=== PATIENT | male | born 1950 | race Caucasian/White ===

== ENCOUNTER 2019-03-09 11:53 | Observation (INO) ==
[2019-03-09] MEDS ORDERED: 0.9 % Sodium Chloride 1,000 ML IVC ONE (12:08)
[2019-03-09] MEDS ORDERED: Ondansetron 4 MG/2 ML VIAL IVP STA (12:08)
--- NOTE | 2019-03-09 12:08 | Emergency Department Note ---
Disposition Clinical Impression: Pneumonia Qualifiers: Pneumonia type: due to unspecified organism Laterality: bilateral Lung location: lower lobe of lung Qualified Code(s): J18.1 - Lobar pneumonia, unspecified organism Disposition: Admitted As Inpatient Condition: Good Instructions: Community-acquired Pneumonia (ED) Prescriptions: Doxycycline 100 mg PO BID #20 capsule Nicotine Patch [Nicoderm] 14 mg TD DAILY #10 patch.td24 Ondansetron ODT [Zofran ODT] 4 mg SL Q8HR #20 tab.rapdis Referrals: Baryon Ingram MD [Primary Care Provider] - 03/10/19 (pneumonia re-evaluation) Forms: ED Satisfaction Letter Time of Disposition: 15:56 Nausea/Vomiting/Diarrhea HPI - General Chief complaint: ED Nausea/Vomiting/Diarrhea Stated complaint: vomiting,weakness Time Seen by Provider: 03/09/19 12:01 Source: patient, family Mode of arrival: ambulatory Limitations: no limitations Nursing Notes Reviewed: Yes Vital Signs Reviewed: Yes - History of Present Illness HPI Narrative: 68-year-old male past medical history of recurrent sinusitis, BPH, high blood pressure presenting for 3 days of gradually progressive and worsening headache, lightheadedness, dizziness, fevers chills nausea vomiting. Patient was seen his primary care physician on Sunday morning diagnosed with upper rest for in fections at home on antibiotics. Family bedside states the patient was unable to take the antibiotics as he developed nausea and vomiting later in the day and has been able unable to keep any by mouth intake down since that point. Patient states that his headache is continued getting worse as well as lightheadedness and dizziness and is he is encountered falls due to this. Patient denies any tr auma during his falls but states that he has also developed worsening nausea and vomiting since this time. Pt Subjective Complaint: nausea, vomiting, abdominal pain Onset (ago): day(s) Associated Abdominal Pain: Yes If pain, Location of pain: diffuse Severity: severe Severity scale (1-10): 8 Consistency: Worsening Associated symptoms: Reports: fever/chills, malaise, nausea/vomiting - Related Data Previous Rx's Medication Instructions Recorded Doxycycline 100 mg PO BID #20 capsule 03/09/19 Nicotine Patch [Nicoderm] 14 mg TD DAILY #10 patch.td24 03/09/19 Ondansetron ODT [Zofran ODT] 4 mg SL Q8HR #20 tab.rapdis 03/09/19 Allergies Allergy/AdvReac Type Severity Reaction Status Date / Time No Known Allergies Allergy Verified 09/03/18 10:15 Review of Systems: *See History of Present Illness for more detail Constitutional: Admits fever, chills HEENT: Denies dysphagia/odynophagia, lymphadenopathy Cardiovascular: Denies: chest pain Respiratory: Denies: dyspnea, cough, hemoptysis Gastrointestinal: Admits abdominal pain, nausea vomiting Denies:diarrhea, constipation, hematemesis, melena, hematochezia Genitourinary: Denies: hematuria Musculoskeletal: Denies: back pain, neck pain Integumentary: Denies: rash Neurological: Admits headache, weakness, lightheadedness and dizziness difficulty with ambulation Denies: numbness, paresthesias. Endocrine: Admits fatigue All systems ED: reviewed and negative except as stated. Review of Systems: As Per HPI Past Medical History - Past Medical History Medical history: Reports: hyperlipidemia, hypertension, other - Social History Smoking Status: Current every day smoker Smokeless Tobacco Status: No Alcohol use: Reports: none Drug use: Reports: none Physical Exam Constitutional: No acute distress, [id number], engaged to conversation, speech is fluid, answers questions appropriately Neuro: GCS 15, no overt focal neurological deficits Head: Atraumatic, normocephalic Eyes: Pupils equal, round and reactive to light, no scleral icterus, no conjunctival injection Neck: Trachea midline without deviation. Anterior neck is supple without swelling. *Chest: Symmetric chest wall rise *Heart: Cardiac rhythm and rate are regular with S1 and S2 , no S3 or S4 appreciated, no murmurs, gallops, rubs, or clicks. *Lungs: Lungs are clear to auscultation bilaterally, without accessory muscle use or prolonged expiratory phase. No wheezes, rhonchi or stridor appreciated. Abdomen: Abdomen is diffusely tender to palpation. Abdomen is otherwise flat, soft to palpation, normal bowel sounds. No abdominal bruit auscultated. Non- distended, non-rigid, no organomegaly, no ascites appreciated. No pulsatile mass, no guarding to palpation in all four quadrants, no rebound Extremities: Normal capillary refill without evidence of pedal edema, joint swelling or erythema. Pulses/motor/sensory intact in all 4 extremities. Psychiatric exam: Patient displays a normal affect and mood for the environment. No overt signs of hallucination. Integumentary: warm, dry, intact, normal color. No rash, cyanosis, diaphoresis, erythema, or pallor - General Limitations: no limitations General appearance: alert, in no apparent distress Course Course Narrative: Differential diagnosis includes but is not limited to: Intracranial pathology, Myocardial ischemia/arrhythmia Intra-abdominal pathology Evaluations: CBC, BMP, hepatic panel, lipase, ammonia, CT scan of the abdomen and pelvis, CT scan of the head, EKG/old EKG, chest x-ray, urinalysis Treatments: Fentanyl and Zofran, IV fluids for the management of patient's symptoms - Reevaluation(s) Reevaluation #1: Concern for pneumonia patient given 500 mg azithromycin once in ED. Vital Signs Temperature 97.4 F L 03/09/19 11:58 Pulse Rate 64 03/09/19 11:58 Respiratory Rate 18 03/09/19 11:58 Blood Pressure 149/94 03/09/19 11:58 O2 Sat by Pulse Oximetry 97 03/09/19 11:58 Temperature 97.4 F L 03/09/19 11:58 Pulse Rate 58 03/09/19 15:48 Respiratory Rate 17 03/09/19 15:48 Blood Pressure 152/91 03/09/19 15:48 O2 Sat by Pulse Oximetry 96 03/09/19 15:48 Oxygen Delivery Oxygen Delivery Room Air Nausea/Vomiting/Diarrhea - [facility] Narrative Medical decision making narrative: Patient imaging results significant for tree in bilateral opacities consistent with small airway disease. EKG, laboratory, imaging results are otherwise unremarkable. Patient was initially to be discharged home with ED return precautions and instructions to follow up with his primary care physician. During the discharge process patient developed severe substernal chest pain, which the patient initially believed to be heartburn. EKG was reperformed which shows no ischemic change. Despite GI cocktail here in the ED patient is continuing to have chest pain as well as weakness, lightheaded dizziness despite management with IV fluids, pain medication and antiemetics. Patient states that he does not feel safe returning home at this time given his condition and his inability to ambulate without assistance. Patient will be admitted to hospital medicine service for their evaluation and management with concern for ACS Patient and his family at the bedside verbalized their understanding and agreement with this plan. Patient's hemodynamics were stable time of admission Dr. Arora accepting admission. - Lab Data Lab results reviewed: Yes I reviewed the patient's lab results. Result diagrams: 03/09/19 12:22 03/09/19 12:22 Lab Results 03/09/19 03/09/19 03/09/19 Range/Units 12:22 12:22 12:22 WBC 10.3 (4.3-11.1) K/mcL RBC 5.39 (4.19-5.50) M/mcL Hgb 16.2 (12.9-16.9) g/dL Hct 46.6 (37.5-50.1) % MCV 86.5 (83.0-100.0) fL MCH 30.1 (28.0-33.3) pg MCHC 34.8 (31.6-35.5) g/dL RDW 13.1 (11.5-14.5) % Plt Count 168 (140-400) K/mcL MPV 10.5 (9.4-12.4) fL Immature Gran % 0.2 (0-4) % Seg Neutrophils % 65.2 % Lymphocytes % 27.6 % Monocytes % 5.2 % Eosinophils % 1.5 % Basophils % 0.3 % Neutrophils # 6.7 (1.6-8.9) K/mcL Lymphocytes # 2.8 (0.6-4.6) K/mcL Monocytes # 0.5 (0.0-1.3) K/mcL Eosinophils # 0.2 (0.0-0.6) K/mcL Basophils # 0.0 (0.0-0.2) K/mcL Sodium 140 (136-145) mEq/L Potassium 3.9 (3.5-5.1) mEq/L Chloride 104 (98-107) mEq/L Carbon Dioxide 23 (23-29) mEq/L BUN 19 (8-23) mg/dL Creatinine 0.86 (0.70-1.30) mg/dL Est GFR ( Amer) > 60 (> 60) Est GFR (Non-Af Amer) > 60 (> 60) BUN/Creatinine Ratio 22 (6-26) Glucose 115 H (70-105) mg/dL Calculated Osmolality 293 (280-300) Lactic Acid (0.5-2.2) mmol/L Calcium 9.7 (8.6-10.3) mg/dL Total Bilirubin 0.4 (0.3-1.0) mg/dL Direct Bilirubin 0.1 (0.0-0.2) mg/dL Indirect Bilirubin 0.3 (0.0-1.2) mg/dL AST 19 (13-39) Units/L ALT 30 (7-52) Units/L Alkaline Phosphatase 118 H (34-104) Units/L Ammonia 34 (16-53) mcmol/L Troponin I < 0.03 (< 0.04) ng/mL Serum Total Protein 7.6 (6.4-8.9) g/dL Albumin 4.3 (3.5-5.7) g/dL Globulin 3.3 (2.4-3.5) g/dL Albumin/Globulin Ratio 1.3 (1.1-2.2) Lipase 20 (11-82) Units/L Urine Color (Yellow) Urine Clarity (Clear) Urine pH (5.0-8.0) pH Units Ur Specific [place] (1.010-1.025) Urine Protein (Neg-Trace) mg/dL Urine Glucose (UA) (Normal) mg/dL Urine Ketones (Negative) mg/dL Urine Blood (Negative) Urine Nitrite (Negative) Urine Bilirubin (Negative) Urine Urobilinogen (Normal) mg/dL Ur Leukocyte Esterase (Negative) Urine Microscopic RBC (0-3) per hpf Urine Microscopic WBC (0-3) per hpf Ur Squamous Epith Cells (None-Few) per lpf Urine Bacteria (None-Few) per hpf Hyaline Casts (None-Few) per lpf Ur Culture Indicated? (NO) 03/09/19 03/09/19 Range/Units 13:06 Unknown WBC (4.3-11.1) K/mcL RBC (4.19-5.50) M/mcL Hgb (12.9-16.9) g/dL Hct (37.5-50.1) % MCV (83.0-100.0) fL MCH (28.0-33.3) pg MCHC (31.6-35.5) g/dL RDW (11.5-14.5) % Plt Count (140-400) K/mcL MPV (9.4-12.4) fL Immature Gran % (0-4) % Seg Neutrophils % % Lymphocytes % % Monocytes % % Eosinophils % % Basophils % % Neutrophils # (1.6-8.9) K/mcL Lymphocytes # (0.6-4.6) K/mcL Monocytes # (0.0-1.3) K/mcL Eosinophils # (0.0-0.6) K/mcL Basophils # (0.0-0.2) K/mcL Sodium (136-145) mEq/L Potassium (3.5-5.1) mEq/L Chloride (98-107) mEq/L Carbon Dioxide (23-29) mEq/L BUN (8-23) mg/dL Creatinine (0.70-1.30) mg/dL Est GFR ( Amer) (> 60) Est GFR (Non-Af Amer) (> 60) BUN/Creatinine Ratio (6-26) Glucose (70-105) mg/dL Calculated Osmolality (280-300) Lactic Acid 1.1 (0.5-2.2) mmol/L Calcium (8.6-10.3) mg/dL Total Bilirubin (0.3-1.0) mg/dL Direct Bilirubin (0.0-0.2) mg/dL Indirect Bilirubin (0.0-1.2) mg/dL AST (13-39) Units/L ALT (7-52) Units/L Alkaline Phosphatase (34-104) Units/L Ammonia (16-53) mcmol/L Troponin I (< 0.04) ng/mL Serum Total Protein (6.4-8.9) g/dL Albumin (3.5-5.7) g/dL Globulin (2.4-3.5) g/dL Albumin/Globulin Ratio (1.1-2.2) Lipase (11-82) Units/L Urine Color Yellow (Yellow) Urine Clarity Cloudy A (Clear) Urine pH 8.0 (5.0-8.0) pH Units Ur Specific [place] 1.014 (1.010-1.025) Urine Protein 30 H (Neg-Trace) mg/dL Urine Glucose (UA) Normal (Normal) mg/dL Urine Ketones Negative (Negative) mg/dL Urine Blood Negative (Negative) Urine Nitrite Negative (Negative) Urine Bilirubin Negative (Negative) Urine Urobilinogen Normal (Normal) mg/dL Ur Leukocyte Esterase Negative (Negative) Urine Microscopic RBC 0-3 (0-3) per hpf Urine Microscopic WBC 0-3 (0-3) per hpf Ur Squamous Epith Cells Many H (None-Few) per lpf Urine Bacteria None Seen (None-Few) per hpf Hyaline Casts None Seen (None-Few) per lpf Ur Culture Indicated? NO (NO) - Radiology Data Radiology results reviewed: Yes I reviewed the patient's radiology results. Abdomen/Pelvis CT 03/09/19 12:18 IMPRESSION: Tree-in-bud nodular opacities in the visualized lung are consistent with acute infectious or inflammatory small airways disease. No acute inflammatory process in the abdomen or pelvis. D/ / Nicci Dickey MD / Nicci Dickey MD Interpreting Provider: Nicci Dickey MD Head CT 03/09/19 12:18 IMPRESSION: No acute intracranial abnormality. Age related changes including chronic small vessel ischemic disease and cerebral atrophy. Right sinus disease as described. D/ / 03/09/2019 13:47:00 Tarsha Rascon MD / tiki Interpreting Provider: Tarsha Rascon MD Chest X-Ray 03/09/19 12:19 IMPRESSION: No acute cardiopulmonary process. D/ / Nicci Dickey MD / Nicci Dickey MD Interpreting Provider: Nicci Dickey MD - EKG Data EKG attestation: Yes I reviewed and interpreted this EKG. EKG results narrative: Patient EKG shows sinus rhythm with a heart of 61 bpm, VA interval of 159 ms, QRS duration of 106 ms, QT/QTc interval 436/440 ms respectively. There are no significant ST segment elevations, depressions, pathologic Q's, abnormal T-wave inversions, nor no signs acute ischemic change. This EKG performed today is generally consistent with prior EKG performed on 12/20/2011. Heart Score - Score History: Moderately Suspicious EKG: Normal Age: Greater than 65 Risk Factors: 1-2 risk factors Troponin: Less than normal limit HEART Score Total: 4
[2019-03-09] MEDS ORDERED: *HR* FentaNYL (PF) 100 MCG/2 ML VIAL IVP ONE (12:19)
[2019-03-09 12:39] LABS: Basophils % 0.3 %; Eosinophils # 0.2 K/mcL (0.0-0.6); Eosinophils % 1.5 %; Hematocrit 46.6 % (37.5-50.1); Hemoglobin 16.2 g/dL (12.9-16.9); Immature Granulocytes % 0.2 % (0-4); Lymphocytes # 2.8 K/mcL (0.6-4.6); Lymphocytes % 27.6 %; Mean Corpuscular HGB Conc 34.8 g/dL (31.6-35.5); Mean Corpuscular Hemoglobin 30.1 pg (28.0-33.3); Mean Corpuscular Volume 86.5 fL (83.0-100.0); Mean Platelet Volume 10.5 fL (9.4-12.4); Monocytes # 0.5 K/mcL (0.0-1.3); Monocytes % 5.2 %; Neutrophils # 6.7 K/mcL (1.6-8.9); Platelet Count 168 K/mcL (140-400); Red Blood Count 5.39 M/mcL (4.19-5.50); Red Cell Distribution Width 13.1 % (11.5-14.5); Segmented Neutrophils % 65.2 %; White Blood Count 10.3 K/mcL (4.3-11.1)
[2019-03-09 13:01] LABS: Alanine Aminotransferase 30 Units/L (7-52); Albumin 4.3 g/dL (3.5-5.7); Albumin/Globulin Ratio 1.3 (1.1-2.2); Alkaline Phosphatase 118 Units/L (34-104); Aspartate Amino Transferase 19 Units/L (13-39); BUN/Creatinine Ratio 22 (6-26); Bilirubin,Direct 0.1 mg/dL (0.0-0.2); Bilirubin,Indirect 0.3 mg/dL (0.0-1.2); Bilirubin,Total 0.4 mg/dL (0.3-1.0); Blood Urea Nitrogen 19 mg/dL (8-23); Calcium 9.7 mg/dL (8.6-10.3); Carbon Dioxide 23 mEq/L (23-29); Chloride 104 mEq/L (98-107); Globulin 3.3 g/dL (2.4-3.5); Glucose 115 mg/dL (70-105); Lipase 20 Units/L (11-82); Osmolality,Calculated 293 (280-300); Potassium 3.9 mEq/L (3.5-5.1); Sodium 140 mEq/L (136-145); Total Protein 7.6 g/dL (6.4-8.9); Troponin I < 0.03 ng/mL (< 0.04); eGFR For African Americans > 60 (> 60); eGFR For Non-African Americans > 60 (> 60)
[2019-03-09 13:34] LABS: Bilirubin,Urine Negative (Negative); Blood,Urine Negative (Negative); Clarity,Urine Cloudy (Clear); Color,Urine Yellow (Yellow); Glucose,Urine (UA) Normal (Normal); Ketones,Urine Negative (Negative); Leukocyte Esterase,Urine Negative (Negative); Nitrite,Urine Negative (Negative); Protein,Urine 30 mg/dL (Neg-Trace); Specific Gravity,Urine 1.014 (1.010-1.025); Urobilinogen,Urine Normal (Normal)
[2019-03-09 13:36] LABS: Bacteria,Urine None Seen per hpf (None-Few); Hyaline Casts,Urine None Seen per lpf (None-Few); RBC,Urine 0-3 per hpf (0-3); Squamous Epithelial Cell,Urine Many per lpf (None-Few); WBC,Urine 0-3 per hpf (0-3)
[2019-03-09] MEDS ORDERED: Azithromycin 500 MG in D5% in Water 250 ML IVPB ONE (13:56)
--- NOTE | 2019-03-09 14:12 | Emergency Department Note ---
Disposition Clinical Impression: Pneumonia Qualifiers: Pneumonia type: due to unspecified organism Laterality: bilateral Lung location: lower lobe of lung Qualified Code(s): J18.1 - Lobar pneumonia, unspecified organism Disposition: Admitted As Inpatient Condition: Good Instructions: Community-acquired Pneumonia (ED) Reasons to Return/Additional Instructions: 1. stop taking the amoxicillin and start taking the doxcycline antibiotic 2. please stop smoking and use nicotine patch 3. you have been offered admisison to the hospital today and declined admission. IF you begin to feel worse or change your mind about admission to the hospital please return to the ED. you must be seen by your primary care doctor in 2-3 days to re-evlaute if you are better or worse. Prescriptions: Doxycycline 100 mg PO BID #20 capsule Nicotine Patch [Nicoderm] 14 mg TD DAILY #10 patch.td24 Ondansetron ODT [Zofran ODT] 4 mg SL Q8HR #20 tab.rapdis Referrals: Bayron Ingram MD [Primary Care Provider] - 03/10/19 (pneumonia re-evaluation) Forms: ED Satisfaction Letter Time of Disposition: 14:09 General Adult HPI - General Chief complaint: ED Nausea/Vomiting/Diarrhea Stated complaint: vomiting,weakness Time Seen by Provider: 03/09/19 12:01 Source: patient, family Mode of arrival: ambulatory Limitations: no limitations - History of Present Illness Pain Scale: 8 - Related Data Previous Rx's Medication Instructions Recorded Doxycycline 100 mg PO BID #20 capsule 03/09/19 Nicotine Patch [Nicoderm] 14 mg TD DAILY #10 patch.td24 03/09/19 Ondansetron ODT [Zofran ODT] 4 mg SL Q8HR #20 tab.rapdis 03/09/19 Allergies Allergy/AdvReac Type Severity Reaction Status Date / Time No Known Allergies Allergy Verified 09/03/18 10:15 Past Medical History - Past Medical History Medical history: Reports: hyperlipidemia, hypertension, other - Social History Smoking Status: Current every day smoker Smokeless Tobacco Status: No Alcohol use: Reports: none Drug use: Reports: none Physical Exam - General Limitations: no limitations General appearance: alert, in no apparent distress Course - Reevaluation(s) Reevaluation #1: parag has changed his mind and would like to be admitted to [facility] for IV ABX. Time: 15:48 Vital Signs Temperature 97.4 F L 03/09/19 11:58 Pulse Rate 64 03/09/19 11:58 Respiratory Rate 18 03/09/19 11:58 Blood Pressure 149/94 03/09/19 11:58 O2 Sat by Pulse Oximetry 97 03/09/19 11:58 Temperature 97.4 F L 03/09/19 11:58 Pulse Rate 60 03/09/19 15:00 Respiratory Rate 16 03/09/19 15:00 Blood Pressure 152/102 03/09/19 15:00 O2 Sat by Pulse Oximetry 96 03/09/19 15:00 Oxygen Delivery Oxygen Delivery Room Air Medical Decision Making - Lab Data Result diagrams: 03/09/19 12:22 03/09/19 12:22 Lab Results 03/09/19 03/09/19 03/09/19 Range/Units 12:22 12:22 12:22 WBC 10.3 (4.3-11.1) K/mcL RBC 5.39 (4.19-5.50) M/mcL Hgb 16.2 (12.9-16.9) g/dL Hct 46.6 (37.5-50.1) % MCV 86.5 (83.0-100.0) fL MCH 30.1 (28.0-33.3) pg MCHC 34.8 (31.6-35.5) g/dL RDW 13.1 (11.5-14.5) % Plt Count 168 (140-400) K/mcL MPV 10.5 (9.4-12.4) fL Immature Gran % 0.2 (0-4) % Seg Neutrophils % 65.2 % Lymphocytes % 27.6 % Monocytes % 5.2 % Eosinophils % 1.5 % Basophils % 0.3 % Neutrophils # 6.7 (1.6-8.9) K/mcL Lymphocytes # 2.8 (0.6-4.6) K/mcL Monocytes # 0.5 (0.0-1.3) K/mcL Eosinophils # 0.2 (0.0-0.6) K/mcL Basophils # 0.0 (0.0-0.2) K/mcL Sodium 140 (136-145) mEq/L Potassium 3.9 (3.5-5.1) mEq/L Chloride 104 (98-107) mEq/L Carbon Dioxide 23 (23-29) mEq/L BUN 19 (8-23) mg/dL Creatinine 0.86 (0.70-1.30) mg/dL Est GFR ( Amer) > 60 (> 60) Est GFR (Non-Af Amer) > 60 (> 60) BUN/Creatinine Ratio 22 (6-26) Glucose 115 H (70-105) mg/dL Calculated Osmolality 293 (280-300) Lactic Acid (0.5-2.2) mmol/L Calcium 9.7 (8.6-10.3) mg/dL Total Bilirubin 0.4 (0.3-1.0) mg/dL Direct Bilirubin 0.1 (0.0-0.2) mg/dL Indirect Bilirubin 0.3 (0.0-1.2) mg/dL AST 19 (13-39) Units/L ALT 30 (7-52) Units/L Alkaline Phosphatase 118 H (34-104) Units/L Ammonia 34 (16-53) mcmol/L Troponin I < 0.03 (< 0.04) ng/mL Serum Total Protein 7.6 (6.4-8.9) g/dL Albumin 4.3 (3.5-5.7) g/dL Globulin 3.3 (2.4-3.5) g/dL Albumin/Globulin Ratio 1.3 (1.1-2.2) Lipase 20 (11-82) Units/L Urine Color (Yellow) Urine Clarity (Clear) Urine pH (5.0-8.0) pH Units Ur Specific [place] (1.010-1.025) Urine Protein (Neg-Trace) mg/dL Urine Glucose (UA) (Normal) mg/dL Urine Ketones (Negative) mg/dL Urine Blood (Negative) Urine Nitrite (Negative) Urine Bilirubin (Negative) Urine Urobilinogen (Normal) mg/dL Ur Leukocyte Esterase (Negative) Urine Microscopic RBC (0-3) per hpf Urine Microscopic WBC (0-3) per hpf Ur Squamous Epith Cells (None-Few) per lpf Urine Bacteria (None-Few) per hpf Hyaline Casts (None-Few) per lpf Ur Culture Indicated? (NO) 03/09/19 03/09/19 Range/Units 13:06 Unknown WBC (4.3-11.1) K/mcL RBC (4.19-5.50) M/mcL Hgb (12.9-16.9) g/dL Hct (37.5-50.1) % MCV (83.0-100.0) fL MCH (28.0-33.3) pg MCHC (31.6-35.5) g/dL RDW (11.5-14.5) % Plt Count (140-400) K/mcL MPV (9.4-12.4) fL Immature Gran % (0-4) % Seg Neutrophils % % Lymphocytes % % Monocytes % % Eosinophils % % Basophils % % Neutrophils # (1.6-8.9) K/mcL Lymphocytes # (0.6-4.6) K/mcL Monocytes # (0.0-1.3) K/mcL Eosinophils # (0.0-0.6) K/mcL Basophils # (0.0-0.2) K/mcL Sodium (136-145) mEq/L Potassium (3.5-5.1) mEq/L Chloride (98-107) mEq/L Carbon Dioxide (23-29) mEq/L BUN (8-23) mg/dL Creatinine (0.70-1.30) mg/dL Est GFR ( Amer) (> 60) Est GFR (Non-Af Amer) (> 60) BUN/Creatinine Ratio (6-26) Glucose (70-105) mg/dL Calculated Osmolality (280-300) Lactic Acid 1.1 (0.5-2.2) mmol/L Calcium (8.6-10.3) mg/dL Total Bilirubin (0.3-1.0) mg/dL Direct Bilirubin (0.0-0.2) mg/dL Indirect Bilirubin (0.0-1.2) mg/dL AST (13-39) Units/L ALT (7-52) Units/L Alkaline Phosphatase (34-104) Units/L Ammonia (16-53) mcmol/L Troponin I (< 0.04) ng/mL Serum Total Protein (6.4-8.9) g/dL Albumin (3.5-5.7) g/dL Globulin (2.4-3.5) g/dL Albumin/Globulin Ratio (1.1-2.2) Lipase (11-82) Units/L Urine Color Yellow (Yellow) Urine Clarity Cloudy A (Clear) Urine pH 8.0 (5.0-8.0) pH Units Ur Specific [place] 1.014 (1.010-1.025) Urine Protein 30 H (Neg-Trace) mg/dL Urine Glucose (UA) Normal (Normal) mg/dL Urine Ketones Negative (Negative) mg/dL Urine Blood Negative (Negative) Urine Nitrite Negative (Negative) Urine Bilirubin Negative (Negative) Urine Urobilinogen Normal (Normal) mg/dL Ur Leukocyte Esterase Negative (Negative) Urine Microscopic RBC 0-3 (0-3) per hpf Urine Microscopic WBC 0-3 (0-3) per hpf Ur Squamous Epith Cells Many H (None-Few) per lpf Urine Bacteria None Seen (None-Few) per hpf Hyaline Casts None Seen (None-Few) per lpf Ur Culture Indicated? NO (NO) Attestation Statement - Attestation Attestation: I reviewed the residents documentation and agree with the residents assessment and plan of care. I have personally had face to face time with the patient. (Brief History, Brief Exam, and MDM) I personally supervised and was present for the santoro/critical portions of the following procedures completed by the resident: (EKG 68 year old male presents to the ED with complaints of waekness and vomitting. IT appears on worup that he has pneumonia and due to his fall I have offered him admission ot the hospital as he is a smoker. Parag decline admsision to the hospital and would like to try outpatient therapy with doxycycline first and if he worsens than will return. I have adised parag that if he does not improve in the next 24-48 hours he need to be re-evlauted by the eD or PCP and admitted there after for IV ABX. Yoko tis agreeable to plan. I have sent him home wiht nicotine patch to help with smoking cesstion. [facility]
[2019-03-09] MEDS ORDERED: GI Cocktail 40 ML EACH PO ONE (14:48)
[2019-03-09] MEDS ORDERED: Naloxone 0.4 MG/ML INJ IVP PRN (16:40)
[2019-03-09] MEDS ORDERED: Acetaminophen 325 MG TABLET PO PRN (16:40)
--- NOTE | 2019-03-09 17:05 | Internal Med History&Physical ---
Date of Encounter: 03/09/19 Time of Encounter: 17:00 Internal Medicine - H&P: HPI Chief complaint: Dizziness, vomitng Admitted From: Home Plans for Post Hospital Care: Home History of present illness: Mr. Wilkes is a 68 year old male with medical history of hypertension and tobacco abuse who presented with 2 days history of nausea and vomiting associated with dizziness which patient described as "everything is turning around". He reports prior to this, he had developed continuous sneezing and rhinorhea associated wit h R sided ear pain and ear fullness. The patient reports baseline hearing difficulty that has not worsened since onset of symptoms. He had gone to his PCp who gave him some antibiotics for sinusitis. However, he has been unable to keep any food down hence his presentation to the ER. Following his vomiting he developed dry cough, denies sputum production, no fever or chills, denies recent travels, but does have sick contacts. He denies anuy acute urinary symptoms, he has a hx of BPH. Patient denies blurry vision, focal weakness, speech difficulty or headaches Work up in the ER significant for sinusitis and tree-in-bud opacities on the lower lung bases. CBC, Chem, UA unremarkable Patient at time of review was beginning to feel and look better per family He has no advanced directives and his at the bedside is the surrogate decision maker He is placed on observation for management of his emesis, vertigo and likely pneumonia Past Med Surg Social Fam HX - Past Medical History Medical history: hyperlipidemia, hypertension, other - Social History Smoking Status: Current every day smoker Smokeless Tobacco Status: No Alcohol use: none Drug use: none Internal Medicine - H&P: Meds Doxycycline 100 mg PO BID #20 capsule 03/09/19 [Rx] Nicotine Patch [Nicoderm] 14 mg TD DAILY #10 patch.td24 03/09/19 [Rx] Ondansetron ODT [Zofran ODT] 4 mg SL Q8HR #20 tab.rapdis 03/09/19 [Rx] Allergy/AdvReac Type Severity Reaction Status Date / Time No Known Allergies Allergy Verified 09/03/18 10:15 All Systems PM: A 10-system review of systems was performed and is negative for pertinent findings except as documented above in the HPI. - Constitutional Constitutional: no chills, no fever(s), no night sweats - EENT Eyes: no change in vision, no discharge, no pain, no photophobia Ears: no ear discharge, no ear pain, no tinnitus Nose, mouth and throat: no dysphagia, no nasal discharge, no neck pain, no sore throat - Cardiovascular Cardiovascular ROS IM: no chest pain, no diaphoresis, no dyspnea, no lightheadedness, no palpitations, no syncope - Respiratory Respiratory: no cough, no dyspnea, no wheezing, no excessive phlegm production - Gastrointestinal Gastrointestinal: nausea, vomiting, no abdominal pain, no diarrhea, no hematemesis, no hematochezia, no melena - Musculoskeletal Musculoskeletal ROS IM: no numbness, no tingling - Integumentary Integumentary IM: no rash, no unusual bruising - Neurological Neurological ROS: as per HPI, vertigo, no confusion, no convulsions, no focal weakness, no numbness, no tingling, no tremor(s) - Hematologic/Lymphatic Hematologic/Lymphatic: no easy bruising - Constitutional Vitals: Temp Pulse Resp BP Pulse Ox 97.4 F L 58 17 152/91 96 03/09/19 11:58 03/09/19 15:48 03/09/19 15:48 03/09/19 15:48 03/09/19 15:48 General appearance: Present: A&O X 3, pleasant, no acute distress Exam: see below - Head Head exam: Present: atraumatic, normocephalic - Eye Eye exam: Present: PERRL, conjuntiva pink, sclera anicteric Pupils: Present: PERRL - Neck Neck exam general surgery: Present: supple, trachea midline. Absent: lymphadenopathy - Respiratory Respiratory exam: Present: CTAB. Absent: accessory muscle use, rales, rhonchi, wheezes - Cardiovascular Cardiovascular exam: Present: RRR, +S1, +S2. Absent: diastolic murmur, gallop, rubs, systolic murmur - GI/Abdominal GI/Abdominal exam: Present: normal bowel sounds, soft, no peritoneal signs. Absent: distended, tenderness - Extremities Exam Extremities exam: Present: warm, radial pulses palpable and symmetrical. Absent: calf tenderness, cyanotic, pedal edema - Neurological Exam Neurological exam: Present: alert, CN II-XII intact, oriented X3, no focal defi cits. Absent: pronater drift, facial droop, speech deficit Additional comments: no nystagmus - Skin Skin exam: Present: dry, intact Internal Med - H&P Results - Labs CBC & Chem 7: 03/09/19 12:22 03/09/19 12:22 Labs: Short CBC 03/09/19 Range/Units 12:22 WBC 10.3 (4.3-11.1) K/mcL Hgb 16.2 (12.9-16.9) g/dL Hct 46.6 (37.5-50.1) % Plt Count 168 (140-400) K/mcL Neutrophils # 6.7 (1.6-8.9) K/mcL BMP 03/09/19 12:22 Sodium 140 Potassium 3.9 Chloride 104 Carbon Dioxide 23 BUN 19 Creatinine 0.86 Glucose 115 H Calcium 9.7 Cardiac Enzymes 03/09/19 Range/Units 12:22 Troponin I < 0.03 (< 0.04) ng/mL Liver Function 03/09/19 Range/Units 12:22 Total Bilirubin 0.4 (0.3-1.0) mg/dL Direct Bilirubin 0.1 (0.0-0.2) mg/dL AST 19 (13-39) Units/L ALT 30 (7-52) Units/L Alkaline Phosphatase 118 H (34-104) Units/L Albumin 4.3 (3.5-5.7) g/dL Urine 03/09/19 Range/Units 13:06 Urine Color Yellow (Yellow) Urine Clarity Cloudy A (Clear) Urine pH 8.0 (5.0-8.0) pH Units Ur Specific [place] 1.014 (1.010-1.025) Urine Protein 30 H (Neg-Trace) mg/dL Urine Glucose (UA) Normal (Normal) mg/dL - Impressions ITS Impressions Abdomen/Pelvis CT 03/09/19 12:18 IMPRESSION: Tree-in-bud nodular opacities in the visualized lung are consistent with acute infectious or inflammatory small airways disease. No acute inflammatory process in the abdomen or pelvis. D/ / Nicci Dickey MD / Nicci Dickey MD Interpreting Provider: Nicci Dickey MD Head CT 03/09/19 12:18 IMPRESSION: No acute intracranial abnormality. Age related changes including chronic small vessel ischemic disease and cerebral atrophy. Right sinus disease as described. D/ / 03/09/2019 13:47:00 Tarsha Rascon MD / malorie Interpreting Provider: Tarsha Rascon MD Chest X-Ray 03/09/19 12:19 IMPRESSION: No acute cardiopulmonary process. D/ / Nicci Dickey MD / Nicci Dickey MD Interpreting Provider: Nicci Dickey MD - Assessment and Plan (1) Vertigo Current Visit: Yes Status: Acute Assessment and plan: Likely due to hx of URI Meclizine prn Continue supportive care (2) Pneumonia Current Visit: Yes Status: Acute Assessment and plan: likely aspiration due to recurrent vomiting continue Unasyn IV Patient is not hypoxic or septic and may be discharged a.m if able to keep medications orally Qualifiers: Pneumonia type: due to unspecified organism Laterality: bilateral Lung location: lower lobe of lung Qualified Code(s): J18.1 - Lobar pneumonia, unspecified organism (3) Sinusitis Current Visit: Yes Status: Acute Assessment and plan: IV unasyn Continue to monitor Qualifiers: Sinusitis location: maxillary Chronicity: acute Recurrence: not specified as recurrent Qualified Code(s): J01.00 - Acute maxillary sinusitis, unspecified (4) Gastritis Current Visit: Yes Status: Acute Assessment and plan: continue famotidine IV q12h till patient is able to take po, then discontinue Qualifiers: Gastritis type: unspecified gastritis Chronicity: acute Gastritis bleeding: without bleeding Qualified Code(s): K29.00 - Acute gastritis without bleeding (5) Hypertension Current Visit: Yes Status: Chronic Assessment and plan: continue home lisinopril add hydralazine prn Qualifiers: Hypertension type: essential hypertension Qualified Code(s): I10 - Essential (primary) hypertension (6) Tobacco dependence Current Visit: Yes Status: Chronic Assessment and plan: NRT Encouraged cessation - Time Spent With Patient Total time spent is greater than 50% in coordination of care (as documented) at patient's floor/unit and/or counseling patient:
[2019-03-09] MEDS: Ringers Solution, Lactated 1,000 ML IVC SCH (17:23)
[2019-03-09] MEDS: Famotidine 20 MG/2 ML VIAL IVP SCH (18:52)
[2019-03-09] MEDS: Nicotine 21 MG PATCH.TD24 TD SCH (18:52)
[2019-03-09] MEDS: Ampicillin/Sulbactam 3,000 MG in 0.9 % Sodium Chloride Mini Bag 100 ML IVPB SCH (18:53)
[2019-03-10] MEDS: Ampicillin/Sulbactam 3,000 MG in 0.9 % Sodium Chloride Mini Bag 100 ML IVPB SCH ×4 (00:42→19:00)
[2019-03-10] MEDS ORDERED: Ibuprofen 600 MG TABLET PO ONE (00:54)
[2019-03-10] MEDS: Ondansetron 4 MG/2 ML VIAL IVP PRN ×2 (03:36→14:18)
[2019-03-10] MEDS: Famotidine 20 MG/2 ML VIAL IVP SCH ×2 (05:52→19:00)
[2019-03-10] MEDS: Nicotine 21 MG PATCH.TD24 TD SCH (10:26)
[2019-03-10] MEDS: Ringers Solution, Lactated 1,000 ML IVC SCH (10:29)
--- NOTE | 2019-03-10 11:51 | Internal Med Progress Note ---
Hospitalist Progress Note - Encounter Date of Encounter: 03/10/19 Time of Encounter: 09:00 - Subjective Interval History: Patient was seen and examined bedside. Pt stated he has been sick since Sunday. Today he feels little better. However he still complaining about vertigo /dizziness, especially when he changed position and stand up. - Exam Vitals: Temp Pulse Resp BP Pulse Ox 97.7 F 62 20 162/92 96 03/10/19 10:45 03/10/19 10:45 03/10/19 10:45 03/10/19 10:45 03/10/19 10:45 Exam: Gen: Alert, awake, Oriented to time,place and person Chest: Diminished breath sounds B/L, No wheezing, No crackles, No rales Heart: S1S2+ RRR No murmurs Abd: Soft, NT, BS +, No organomegaly Ext: No edema, pulses are palpable, No calf tenderness Neuro : No acute focal neuro deficits noticed Skin: No rash. - Assessment and Plan (1) Vertigo Current Visit: Yes Status: Acute Assessment and Plan: Since pt still has significant Vertigo concerning for posterior circulation stroke CT of head - no acute intracranial hemorrhage noticed Brain MRI ordered Cont Meclizine as scheduled Continue supportive care cont IV hydration (2) Pneumonia Current Visit: Yes Status: Acute Assessment and Plan: Reviewed CT of Abd / pelvis - Tree-in-bud nodular opacities in the visualized lung are consistent with acute infectious or inflammatory small airways disease likely aspiration due to recurrent vomiting continue Unasyn IV (3) Sinusitis Current Visit: Yes Status: Acute Assessment and Plan: IV unasyn Continue to monitor (4) Gastritis Current Visit: Yes Status: Acute Assessment and Plan: continue famotidine IV q12h till patient is able to take po, then discontinue (5) Hypertension Current Visit: Yes Status: Chronic Assessment and Plan: Resumed home medications blood pressure fairly controlled continue IV hydralazine as needed (6) Tobacco dependence Current Visit: Yes Status: Chronic Assessment and Plan: Counseled to quit smoking placed on nicotine patch - Time Spent with Patient Total time spent is greater than 50% in coordination of care (as documented) at patient's floor/unit and/or counseling patient: Internal Medicine: Result - Labs CBC & Chem 7: 03/09/19 12:22 03/09/19 12:22 Labs: Short CBC 03/09/19 Range/Units 12:22 WBC 10.3 (4.3-11.1) K/mcL Hgb 16.2 (12.9-16.9) g/dL Hct 46.6 (37.5-50.1) % Plt Count 168 (140-400) K/mcL Neutrophils # 6.7 (1.6-8.9) K/mcL BMP 03/09/19 12:22 Sodium 140 Potassium 3.9 Chloride 104 Carbon Dioxide 23 BUN 19 Creatinine 0.86 Glucose 115 H Calcium 9.7 Cardiac Enzymes 03/09/19 Range/Units 12:22 Troponin I < 0.03 (< 0.04) ng/mL Liver Function 03/09/19 Range/Units 12:22 Total Bilirubin 0.4 (0.3-1.0) mg/dL Direct Bilirubin 0.1 (0.0-0.2) mg/dL AST 19 (13-39) Units/L ALT 30 (7-52) Units/L Alkaline Phosphatase 118 H (34-104) Units/L Albumin 4.3 (3.5-5.7) g/dL Urine 03/09/19 Range/Units 13:06 Urine Color Yellow (Yellow) Urine Clarity Cloudy A (Clear) Urine pH 8.0 (5.0-8.0) pH Units Ur Specific [place] 1.014 (1.010-1.025) Urine Protein 30 H (Neg-Trace) mg/dL Urine Glucose (UA) Normal (Normal) mg/dL - Impressions Impressions Abdomen/Pelvis CT 03/09/19 12:18 IMPRESSION: Tree-in-bud nodular opacities in the visualized lung are consistent with acute infectious or inflammatory small airways disease. No acute inflammatory process in the abdomen or pelvis. D/ / Nicci Dickey MD / Nicci Dickey MD Interpreting Provider: Nicci Dickey MD Head CT 03/09/19 12:18 IMPRESSION: No acute intracranial abnormality. Age related changes including chronic small vessel ischemic disease and cerebral atrophy. Right sinus disease as described. D/ / 03/09/2019 13:47:00 Tarsha Rascon MD / [email or web address] Interpreting Provider: Tarsha Rascon MD Chest X-Ray 03/09/19 12:19 IMPRESSION: No acute cardiopulmonary process. D/ / Nicci Dickey MD / Nicci Dickey MD Interpreting Provider: Nicci Dickey MD Consult Discharge Plan - Plan Referrals: Bayron Ingram MD [Primary Care Provider] - (2) Pneumonia Qualifiers: Pneumonia type: due to unspecified organism Laterality: bilateral Lung loca tion: lower lobe of lung Qualified Code(s): J18.1 - Lobar pneumonia, unspecified organism (3) Sinusitis Qualifiers: Sinusitis location: maxillary Chronicity: acute Recurrence: not specified as recurrent Qualified Code(s): J01.00 - Acute maxillary sinusitis, unspecified (4) Gastritis Qualifiers: Gastritis type: unspecified gastritis Chronicity: acute Gastritis bleeding: without bleeding Qualified Code(s): K29.00 - Acute gastritis without bleeding (5) Hypertension Qualifiers: Hypertension type: essential hypertension Qualified Code(s): I10 - Essential (primary) hypertension
[2019-03-10] MEDS ORDERED: traMADol 50 MG TABLET PO PRN (12:42)
[2019-03-10] MEDS ORDERED: *HR* FentaNYL (PF) 100 MCG/2 ML VIAL IVP PRN (13:18)
[2019-03-10] MEDS: Aspirin Enteric Coated 81 MG Tablet PO SCH (14:17)
--- NOTE | 2019-03-10 18:11 | Electrocardiograph Report ---
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
[2019-03-11] MEDS: Ampicillin/Sulbactam 3,000 MG in 0.9 % Sodium Chloride Mini Bag 100 ML IVPB SCH ×2 (00:07→05:35)
[2019-03-11] MEDS: Ringers Solution, Lactated 1,000 ML IVC SCH (05:35)
[2019-03-11] MEDS: Famotidine 20 MG/2 ML VIAL IVP SCH (05:36)
[2019-03-11 06:42] VITALS: BP 158/97
[2019-03-11] MEDS: Nicotine 21 MG PATCH.TD24 TD SCH (08:30)
[2019-03-11] MEDS: Aspirin Enteric Coated 81 MG Tablet PO SCH (08:30)
--- NOTE | 2019-03-11 10:47 | Discharge Summary ---
- NOTES TO OUTPATIENT PROVIDER Notes to Outpatient Provider: f/u with PCP in one week. Daya quit smoking. Date of Encounter: 03/11/19 Time of Encounter: 10:00 - Discharge Diagnosis (1) Vertigo Priority: Primary Status: Acute (2) Pneumonia Priority: Primary Status: Acute Qualifiers: Pneumonia type: aspiration pneumonia Laterality: bilateral Lung location: lower lobe of lung Qualified Code(s): J69.0 - Pneumonitis due to inhalation of food and vomit (3) Sinusitis Priority: Primary Status: Acute Qualifiers: Sinusitis location: maxillary Chronicity: acute Recurrence: not specified as recurrent Qualified Code(s): J01.00 - Acute maxillary sinusitis, unspecified (4) Gastritis Priority: Secondary Status: Acute Qualifiers: Gastritis type: unspecified gastritis Chronicity: acute Gastritis bleeding: without bleeding Qualified Code(s): K29.00 - Acute gastritis without bleeding (5) Hypertension Priority: Secondary Status: Chronic Qualifiers: Hypertension type: essential hypertension Qualified Code(s): I10 - Essential (primary) hypertension (6) Tobacco dependence Priority: Secondary Status: Chronic Hospital course: Mr. Wilkes is a 68 year old male with medical history of hypertension, HLD and chronic tobacco dependence pt presented to ER with 2 days history of nausea and vomiting associated with dizziness / vertigo symptoms, which patient described as "everything is turning around". He reports prior to this, he had developed continuous sneezing and rhinorhea associated with R sided ear pain and ear fullness. The patient reports baseline hearing difficulty that has not worsened since onset of symptoms. He had gone to his PCp who gave him some antibiotics for sinusitis. However, he has been unable to keep any food down hence his presentation to the ER. He was admitted in the hospital and strated him on empirical abx Unasyn and symptomatic, supportive care. he was placed on ANDREW Meclizine. His vertigo seems to be peripheral vertigo mostly triggered by sinusitis. However since his symptoms improved in 24 hrs, I did brain MRI which came back as negative for CVA. Pt stated his symptoms resolved today and feeling much better. So will d/c him home in stable condition today with PO Abx and PRN Meclizine. - Time Spent with Patient Total time spent providing and/or coordinating discharge services: - Discharge Medications Prescriptions: New Ondansetron ODT [Zofran ODT] 4 mg SL Q8HR #20 tab.rapdis Meclizine [Antivert] 12.5 mg PO TID PRN #20 tablet PRN Reason: Vertigo Aspirin Enteric Coated [Aspirin EC] 81 mg PO DAILY #30 tablet. Amoxicillin/Clavulanate [Augmentin] 875 mg PO BIDWM #10 tablet Nicotine Patch [Nicoderm] 21 mg TD DAILY #30 patch.td24 Continued Atorvastatin Calcium [Lipitor] 80 mg PO QAM Clotrimazole 1% CRM [Lotrimin 1%] 1 appl TP DAILY Lisinopril [Zestril] 10 mg PO QAM Tamsulosin HCl [Flomax] 0.4 mg PO QAM Cholecalciferol (D-3) [Vitamin D] 1,000 unit PO DAILY Home Medications: Ondansetron ODT [Zofran ODT] 4 mg SL Q8HR #20 tab.rapdis 03/09/19 [Rx] Atorvastatin Calcium [Lipitor] 80 mg PO QAM 03/10/19 [History] Cholecalciferol (D-3) [Vitamin D] 1,000 unit PO DAILY 03/10/19 [History] Clotrimazole 1% CRM [Lotrimin 1%] 1 appl TP DAILY 03/10/19 [History] Lisinopril [Zestril] 10 mg PO QAM 03/10/19 [History] Tamsulosin HCl [Flomax] 0.4 mg PO QAM 03/10/19 [History] Amoxicillin/Clavulanate [Augmentin] 875 mg PO BIDWM #10 tablet 03/11/19 [Rx] Aspirin Enteric Coated [Aspirin EC] 81 mg PO DAILY #30 tablet. 03/11/19 [Rx] Meclizine [Antivert] 12.5 mg PO TID PRN #20 tablet 03/11/19 [Rx] Nicotine Patch [Nicoderm] 21 mg TD DAILY #30 patch.td24 03/11/19 [Rx] Allergies/Adverse Reactions: Allergy/AdvReac Type Severity Reaction Status Date / Time No Known Allergies Allergy Verified 03/10/19 15:33 Date of admission: 03/09/19 16:35 Primary care physician: Bayron Ingram MD Consults: 03/10/19 07:40 Consult to Nurse Navigator [CONS] Routine Comment: PNEUMONIA - Constitutional Vitals: Temp Pulse Resp BP Pulse Ox 98.7 F 61 21 158/97 96 03/11/19 06:40 03/11/19 06:40 03/11/19 06:40 03/11/19 06:40 03/11/19 06:40 General appearance: Present: A&O X 3, pleasant, no acute distress Exam: Gen: Alert, awake, Oriented to time,place and person Chest: Diminished breath sounds B/L, No wheezing, No crackles, No rales Heart: S1S2+ RRR No murmurs Abd: Soft, NT, BS +, No organomegaly Ext: No edema, pulses are palpable, No calf tenderness Neuro : No acute focal neuro deficits noticed Skin: No rash. - Patient Status Disposition: Home, Self-Care Condition: Good Overall status at discharge: patient is back to baseline - Discharge Instructions Follow Up With: Bayron Ingram MD [Primary Care Provider] - - Diet and Activity Activity: increase activity as tolerated Diet: low salt diet
--- NOTE | 2019-03-13 11:30 | Electrocardiograph Report ---
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
== END 2019-03-11 11:41 | disposition home or self-care (01) ==
LOC: 3BNU 11:53 → EMEROOARM 11:53 → SUATTDRO 16:35 → 3BNU 17:50
PROVIDERS: ADMIT Internal Medicine; ATTEND Family Medicine

== ENCOUNTER 2022-01-09 11:41 | Inpatient (IN) ==
[~2022-01-09 11:41] MED LIST: Famotidine 20 MG/2 ML VIAL IVP ONE
[2022-01-09] MEDS ORDERED: cefOXitin 2,000 MG in 0.9 % Sodium Chloride 20 ML IVP ONE (12:36)
[2022-01-09] MEDS ORDERED: Ringers Solution, Lactated 1,000 ML IVC SCH (12:45)
[2022-01-09] MEDS ORDERED: Acetaminophen IV 1,000 MG/100 ML BAG IVPB ONE (12:51)
[2022-01-09] MEDS ORDERED: Ondansetron 4 MG/2 ML VIAL IVP PRN ×2 (13:13→21:05)
[2022-01-09] MEDS ORDERED: *HR* Metoprolol 5 MG/5 ML VIAL IVP PRN (13:13)
[2022-01-09] MEDS ORDERED: Albuterol 2.5 MG/3 ML NEBULIZER IH PRN (13:13)
[2022-01-09] MEDS ORDERED: Nitroglycerin 0.4 MG TAB.SUBL SL PRN (13:13)
[2022-01-09] MEDS ORDERED: Naloxone 0.4 MG/ML INJ IVP PRN (13:13)
[2022-01-09] MEDS ORDERED: EPHEDrine 50 MG/ML VIAL ONE ×2 (13:21→17:11)
[2022-01-09] MEDS ORDERED: *HR* Propofol 200 MG/20 ML VIAL IVP ONE ×2 (13:26→17:19)
[2022-01-09] MEDS ORDERED: *HR* FentaNYL (PF) 100 MCG/2 ML VIAL ONE ×3 (13:26→20:49)
[2022-01-09] MEDS ORDERED: *HR* Rocuronium Bromide 50 MG/5 ML VIAL ONE ×3 (13:27→19:14)
[2022-01-09] MEDS ORDERED: Lidocaine HCL 4 ML Topical Solution (Laryng-O-Jet Kit Sterile Pak) TP ONE (13:27)
[2022-01-09] MEDS ORDERED: Lidocaine -MPF 2% 2 ML VIAL ONE (13:27)
[2022-01-09] MEDS ORDERED: Ondansetron 4 MG/2 ML VIAL ONE (13:27)
[2022-01-09] MEDS ORDERED: *HR* HYDROMORPHONE 2 MG/ML VIAL ONE (17:03)
[2022-01-09] MEDS ORDERED: Ketamine HCL *QUVA* 50mg (1mL) SYRINGE ONE (19:11)
[2022-01-09] MEDS ORDERED: Lidocaine Jelly 11 ml Syringe ONE (19:27)
[2022-01-09] MEDS: *HR* FentaNYL (PF) 100 MCG/2 ML VIAL IVP PRN ×4 (21:40→22:00)
[2022-01-09] MEDS: Ringers Solution, Lactated 1,000 ML IVC SCH (23:10)
[2022-01-10] MEDS: Ketorolac 30 MG/ML VIAL IVP PRN ×3 (01:46→20:13)
[2022-01-10 05:37] LABS: Basophils % 0.1 %; Hematocrit 41.9 % (37.5-50.1); Hemoglobin 14.2 g/dL (12.9-16.9); Immature Granulocytes % 0.5 % (0-4); Lymphocytes # 1.1 K/mcL (0.6-4.6); Lymphocytes % 6.2 %; Mean Corpuscular HGB Conc 33.9 g/dL (31.6-35.5); Mean Corpuscular Hemoglobin 30.3 pg (28.0-33.3); Mean Corpuscular Volume 89.5 fL (83.0-100.0); Monocytes # 0.9 K/mcL (0.0-1.3); Monocytes % 5.1 %; Neutrophils # 15.2 K/mcL (1.6-8.9); Platelet Count 191 K/mcL (140-400); Red Blood Count 4.68 M/mcL (4.19-5.50); Red Cell Distribution Width 12.7 % (11.5-14.5); Segmented Neutrophils % 88.1 %; White Blood Count 17.2 K/mcL (4.3-11.1)
[2022-01-10 06:07] LABS: BUN/Creatinine Ratio 19 (6-26); Blood Urea Nitrogen 19 mg/dL (8-23); Calcium 8.6 mg/dL (8.6-10.3); Carbon Dioxide 22 mEq/L (23-29); Chloride 105 mEq/L (98-107); Glucose 162 mg/dL (70-105); Osmolality,Calculated 288 (280-300); Potassium 4.4 mEq/L (3.5-5.1); Sodium 136 mEq/L (136-145); eGFR For African Americans > 60 (> 60); eGFR For Non-African Americans > 60 (> 60)
[2022-01-10] MEDS: Pantoprazole 40 MG VIAL IVP SCH (07:54)
[2022-01-10] MEDS: Ringers Solution, Lactated 1,000 ML IVC SCH (09:12)
[2022-01-10] MEDS ORDERED: Prochlorperazine 10 MG/2 ML VIAL IVP STA (09:53)
[2022-01-10] MEDS ORDERED: Acetaminophen IV 1,000 MG/100 ML BAG IVPB STA (09:53)
[2022-01-10] MEDS ORDERED: Acetaminophen IV 1,000 MG/100 ML BAG IVPB SCH (12:00)
[2022-01-10] MEDS: Gabapentin 300 MG CAPSULE PO SCH ×2 (14:42→20:13)
[2022-01-10] MEDS: methocarbamoL 750 MG TABLET PO SCH (14:42)
[2022-01-10] MEDS: Acetaminophen IV 1,000 MG/100 ML BAG IVPB SCH (18:29)
[2022-01-10] MEDS: *HR* Heparin 5,000 UNIT/ML VIAL SQ SCH (18:29)
[2022-01-11] MEDS: Ringers Solution, Lactated 1,000 ML IVC SCH (00:02)
[2022-01-11] MEDS: Acetaminophen IV 1,000 MG/100 ML BAG IVPB SCH ×5 (00:02→23:12)
[2022-01-11] MEDS: methocarbamoL 750 MG TABLET PO SCH ×4 (00:03→23:13)
[2022-01-11] MEDS: Ketorolac 30 MG/ML VIAL IVP PRN (04:26)
[2022-01-11] MEDS: *HR* Heparin 5,000 UNIT/ML VIAL SQ SCH ×2 (04:30→18:17)
[2022-01-11 07:27] LABS: BUN/Creatinine Ratio 20 (6-26); Blood Urea Nitrogen 18 mg/dL (8-23); Calcium 8.4 mg/dL (8.6-10.3); Carbon Dioxide 25 mEq/L (23-29); Chloride 107 mEq/L (98-107); Glucose 97 mg/dL (70-105); Osmolality,Calculated 286 (280-300); Potassium 3.9 mEq/L (3.5-5.1); Sodium 137 mEq/L (136-145); eGFR For African Americans > 60 (> 60); eGFR For Non-African Americans > 60 (> 60)
[2022-01-11 07:45] LABS: Basophils % 0.2 %; Eosinophils % 0.2 %; Hematocrit 38.7 % (37.5-50.1); Hemoglobin 12.9 g/dL (12.9-16.9); Immature Granulocytes % 0.3 % (0-4); Lymphocytes % 23.4 %; Mean Corpuscular HGB Conc 33.3 g/dL (31.6-35.5); Mean Corpuscular Hemoglobin 30.1 pg (28.0-33.3); Mean Corpuscular Volume 90.2 fL (83.0-100.0); Mean Platelet Volume 11.3 fL (9.4-12.4); Neutrophils # 8.5 K/mcL (1.6-8.9); Platelet Count 165 K/mcL (140-400); Red Blood Count 4.29 M/mcL (4.19-5.50); Red Cell Distribution Width 12.9 % (11.5-14.5); Segmented Neutrophils % 67.9 %; White Blood Count 12.6 K/mcL (4.3-11.1)
[2022-01-11] MEDS: Pantoprazole 40 MG VIAL IVP SCH (07:50)
[2022-01-11] MEDS: lisinopriL 20 MG TABLET PO SCH (07:50)
[2022-01-11] MEDS: Finasteride 5 MG TABLET PO SCH (07:50)
[2022-01-11] MEDS: Gabapentin 300 MG CAPSULE PO SCH ×3 (07:50→21:18)
[2022-01-11] MEDS: Ondansetron 4 MG/2 ML VIAL IVP PRN (08:34)
[2022-01-11] MEDS ORDERED: Ketorolac 30 MG/ML VIAL IVP STA (08:43)
[2022-01-11] MEDS ORDERED: Prochlorperazine 10 MG/2 ML VIAL IVP STA (08:45)
[2022-01-11] MEDS ORDERED: Ondansetron 4 MG/2 ML VIAL IVP ONE (08:45)
[2022-01-11] MEDS ORDERED: *HR* HYDROmorphone 2 MG/ML SYRINGE IVP ONE (08:56)
[2022-01-11] MEDS: Ipratropium/Albuterol Neb 3 ML IH SCH ×5 (09:03→23:55)
[2022-01-11] MEDS ORDERED: Furosemide 20 MG/2 ML VIAL IVP ONE (13:12)
[2022-01-12] MEDS: Ipratropium/Albuterol Neb 3 ML IH SCH ×2 (04:15→08:10)
[2022-01-12] MEDS: Acetaminophen IV 1,000 MG/100 ML BAG IVPB SCH (04:32)
[2022-01-12] MEDS: *HR* Heparin 5,000 UNIT/ML VIAL SQ SCH ×2 (04:33→17:34)
[2022-01-12] MEDS: methocarbamoL 750 MG TABLET PO SCH ×3 (07:44→23:43)
[2022-01-12] MEDS: lisinopriL 20 MG TABLET PO SCH (07:45)
[2022-01-12] MEDS: Finasteride 5 MG TABLET PO SCH (07:45)
[2022-01-12] MEDS: Gabapentin 300 MG CAPSULE PO SCH ×3 (07:45→20:06)
[2022-01-12] MEDS: Ibuprofen 800 MG TABLET PO SCH ×3 (07:45→23:42)
[2022-01-12] MEDS: Pantoprazole 40 MG VIAL IVP SCH (07:46)
[2022-01-12] MEDS: polyethylene glycoL 3350 17 GM POWD.PACK PO SCH (07:47)
[2022-01-12 08:26] LABS: Basophils % 0.4 %; Eosinophils # 0.2 K/mcL (0.0-0.6); Hematocrit 37.8 % (37.5-50.1); Hemoglobin 12.9 g/dL (12.9-16.9); Immature Granulocytes % 0.4 % (0-4); Lymphocytes # 2.5 K/mcL (0.6-4.6); Lymphocytes % 24.3 %; Mean Corpuscular HGB Conc 34.1 g/dL (31.6-35.5); Mean Corpuscular Volume 90.9 fL (83.0-100.0); Mean Platelet Volume 11.4 fL (9.4-12.4); Monocytes # 0.9 K/mcL (0.0-1.3); Monocytes % 8.2 %; Neutrophils # 6.8 K/mcL (1.6-8.9); Platelet Count 175 K/mcL (140-400); Red Blood Count 4.16 M/mcL (4.19-5.50); Segmented Neutrophils % 64.7 %; White Blood Count 10.4 K/mcL (4.3-11.1)
[2022-01-12] MEDS: *HR* OxyCODONE/APAP 5/325 TABLET PO PRN ×2 (08:51→14:31)
[2022-01-12 09:13] LABS: BUN/Creatinine Ratio 13 (6-26); Blood Urea Nitrogen 12 mg/dL (8-23); Calcium 8.6 mg/dL (8.6-10.3); Carbon Dioxide 25 mEq/L (23-29); Chloride 107 mEq/L (98-107); Glucose 102 mg/dL (70-105); Osmolality,Calculated 286 (280-300); Potassium 3.8 mEq/L (3.5-5.1); Sodium 138 mEq/L (136-145); eGFR For African Americans > 60 (> 60); eGFR For Non-African Americans > 60 (> 60)
[2022-01-12] MEDS ORDERED: Ipratropium/Albuterol Neb 3 ML IH PRN (11:07)
[2022-01-12] MEDS ORDERED: Furosemide 20 MG/2 ML VIAL IVP ONE (11:22)
[2022-01-12] MEDS: Acetaminophen 325 MG TABLET PO SCH ×3 (11:31→23:43)
[2022-01-12] MEDS: Metoclopramide 20 MG in 0.9 % Sodium Chloride 50 ML IVPB SCH ×2 (15:00→23:42)
[2022-01-13] MEDS: *HR* Heparin 5,000 UNIT/ML VIAL SQ SCH ×2 (06:01→17:55)
[2022-01-13] MEDS: Metoclopramide 20 MG in 0.9 % Sodium Chloride 50 ML IVPB SCH ×2 (06:01→16:23)
[2022-01-13] MEDS: Acetaminophen 325 MG TABLET PO SCH ×4 (06:02→23:18)
[2022-01-13 06:16] LABS: Basophils % 0.2 %; Eosinophils % 0.3 %; Hematocrit 44.8 % (37.5-50.1); Immature Granulocytes % 0.4 % (0-4); Lymphocytes # 1.9 K/mcL (0.6-4.6); Lymphocytes % 15.9 %; Mean Corpuscular HGB Conc 34.2 g/dL (31.6-35.5); Mean Corpuscular Hemoglobin 30.4 pg (28.0-33.3); Mean Corpuscular Volume 89.1 fL (83.0-100.0); Mean Platelet Volume 11.2 fL (9.4-12.4); Monocytes # 0.9 K/mcL (0.0-1.3); Monocytes % 7.9 %; Neutrophils # 8.8 K/mcL (1.6-8.9); Platelet Count 214 K/mcL (140-400); Red Blood Count 5.03 M/mcL (4.19-5.50); Red Cell Distribution Width 12.7 % (11.5-14.5); Segmented Neutrophils % 75.3 %; White Blood Count 11.7 K/mcL (4.3-11.1)
[2022-01-13 06:21] LABS: Hemoglobin 15.3 g/dL (12.9-16.9)
[2022-01-13] MEDS: Ondansetron 4 MG/2 ML VIAL IVP PRN (06:47)
[2022-01-13 06:59] LABS: BUN/Creatinine Ratio 26 (6-26); Blood Urea Nitrogen 22 mg/dL (8-23); Calcium 9.5 mg/dL (8.6-10.3); Carbon Dioxide 22 mEq/L (23-29); Chloride 104 mEq/L (98-107); Glucose 115 mg/dL (70-105); Osmolality,Calculated 288 (280-300); Potassium 4.2 mEq/L (3.5-5.1); Sodium 137 mEq/L (136-145); eGFR For African Americans > 60 (> 60); eGFR For Non-African Americans > 60 (> 60)
[2022-01-13] MEDS ORDERED: Prochlorperazine 10 MG/2 ML VIAL IVP ONE (08:15)
[2022-01-13] MEDS: polyethylene glycoL 3350 17 GM POWD.PACK PO SCH (09:43)
[2022-01-13] MEDS: Pantoprazole 40 MG VIAL IVP SCH (09:43)
[2022-01-13] MEDS: Ibuprofen 800 MG TABLET PO SCH ×3 (09:44→23:18)
[2022-01-13] MEDS: Baclofen 10 MG TABLET PO SCH ×3 (09:44→20:49)
[2022-01-13] MEDS: Finasteride 5 MG TABLET PO SCH (09:45)
[2022-01-13] MEDS: Gabapentin 300 MG CAPSULE PO SCH ×3 (09:46→20:48)
[2022-01-13] MEDS: lisinopriL 20 MG TABLET PO SCH (09:46)
[2022-01-13] MEDS: methocarbamoL 750 MG TABLET PO SCH (11:17)
[2022-01-14] MEDS: *HR* Heparin 5,000 UNIT/ML VIAL SQ SCH ×2 (06:09→18:05)
[2022-01-14] MEDS: Acetaminophen 325 MG TABLET PO SCH ×3 (06:09→18:05)
[2022-01-14] MEDS: *HR* OxyCODONE/APAP 5/325 TABLET PO PRN (06:16)
[2022-01-14] MEDS: Gabapentin 300 MG CAPSULE PO SCH ×3 (09:51→20:36)
[2022-01-14] MEDS: Finasteride 5 MG TABLET PO SCH (09:52)
[2022-01-14] MEDS: lisinopriL 20 MG TABLET PO SCH (09:52)
[2022-01-14] MEDS: polyethylene glycoL 3350 17 GM POWD.PACK PO SCH (09:53)
[2022-01-14] MEDS: Ondansetron 4 MG/2 ML VIAL IVP PRN ×2 (09:58→18:16)
[2022-01-14] MEDS: Ibuprofen 800 MG TABLET PO SCH ×2 (10:05→18:05)
[2022-01-14] MEDS: 0.9 % Sodium Chloride 1,000 ML IVC SCH ×2 (12:54→20:36)
[2022-01-14] MEDS: Metoclopramide 10 MG/2 ML VIAL IVP PRN ×2 (14:03→20:36)
[2022-01-15] MEDS ORDERED: Melatonin 3 MG TABLET PO ONE (00:33)
[2022-01-15] MEDS: Acetaminophen 325 MG TABLET PO SCH ×4 (01:06→17:20)
[2022-01-15] MEDS: Ibuprofen 800 MG TABLET PO SCH ×3 (01:06→14:22)
[2022-01-15] MEDS: Ondansetron 4 MG/2 ML VIAL IVP PRN (01:06)
[2022-01-15] MEDS: Metoclopramide 10 MG/2 ML VIAL IVP PRN (04:27)
[2022-01-15] MEDS: *HR* Heparin 5,000 UNIT/ML VIAL SQ SCH ×2 (05:04→18:26)
[2022-01-15] MEDS: Finasteride 5 MG TABLET PO SCH (07:58)
[2022-01-15] MEDS: Gabapentin 300 MG CAPSULE PO SCH ×3 (07:58→20:59)
[2022-01-15] MEDS: lisinopriL 20 MG TABLET PO SCH (07:59)
[2022-01-15] MEDS: polyethylene glycoL 3350 17 GM POWD.PACK PO SCH (07:59)
[2022-01-15] MEDS ORDERED: chlorproMAZINE 25 MG in 0.9 % Sodium Chloride 100 ML IVPB ONE (10:45)
[2022-01-15] MEDS: 0.9 % Sodium Chloride 1,000 ML IVC SCH ×2 (16:00→21:01)
[2022-01-15] MEDS ORDERED: ChlorproMAZINE 25 MG/ML AMPUL IM ONE (21:30)
[2022-01-16] MEDS: 0.9 % Sodium Chloride 1,000 ML IVC SCH ×4 (00:16→17:56)
[2022-01-16] MEDS: Acetaminophen 325 MG TABLET PO SCH ×4 (00:17→17:56)
[2022-01-16] MEDS: Ibuprofen 800 MG TABLET PO SCH ×2 (00:17→08:47)
[2022-01-16] MEDS: Metoclopramide 10 MG/2 ML VIAL IVP PRN (05:33)
[2022-01-16] MEDS: *HR* Heparin 5,000 UNIT/ML VIAL SQ SCH (05:33)
[2022-01-16 05:39] LABS: Basophils % 0.4 %; Eosinophils # 0.1 K/mcL (0.0-0.6); Eosinophils % 0.8 %; Hematocrit 39.4 % (37.5-50.1); Immature Granulocytes % 0.4 % (0-4); Lymphocytes # 2.3 K/mcL (0.6-4.6); Lymphocytes % 28.4 %; Mean Corpuscular Hemoglobin 30.2 pg (28.0-33.3); Mean Corpuscular Volume 88.9 fL (83.0-100.0); Mean Platelet Volume 10.8 fL (9.4-12.4); Monocytes # 1.3 K/mcL (0.0-1.3); Monocytes % 15.8 %; Neutrophils # 4.3 K/mcL (1.6-8.9); Platelet Count 241 K/mcL (140-400); Red Blood Count 4.43 M/mcL (4.19-5.50); Red Cell Distribution Width 12.5 % (11.5-14.5); Segmented Neutrophils % 54.2 %; White Blood Count 7.9 K/mcL (4.3-11.1)
[2022-01-16 05:40] LABS: Hemoglobin 13.4 g/dL (12.9-16.9)
[2022-01-16 06:06] LABS: BUN/Creatinine Ratio 36 (6-26); Blood Urea Nitrogen 31 mg/dL (8-23); Calcium 8.4 mg/dL (8.6-10.3); Carbon Dioxide 24 mEq/L (23-29); Chloride 104 mEq/L (98-107); Glucose 100 mg/dL (70-105); Osmolality,Calculated 291 (280-300); Potassium 3.4 mEq/L (3.5-5.1); Sodium 137 mEq/L (136-145); eGFR For African Americans > 60 (> 60); eGFR For Non-African Americans > 60 (> 60)
[2022-01-16] MEDS: polyethylene glycoL 3350 17 GM POWD.PACK PO SCH (08:48)
[2022-01-16] MEDS: lisinopriL 20 MG TABLET PO SCH (08:48)
[2022-01-16] MEDS: Gabapentin 300 MG CAPSULE PO SCH (08:49)
[2022-01-16] MEDS: Finasteride 5 MG TABLET PO SCH (08:49)
[2022-01-16 09:17] LABS: Albumin 3.7 g/dL (3.5-5.7); Phosphorous 2.8 mg/dL (2.7-4.5)
[2022-01-16] MEDS ORDERED: Acetylcysteine 10% 2 ML INHSOL IH ONE (09:40)
[2022-01-16] MEDS ORDERED: Ipratropium/Albuterol Neb 3 ML IH ONE (09:40)
[2022-01-16] MEDS ORDERED: GI Cocktail 40 ML EACH PO ONE (09:40)
[2022-01-16] MEDS ORDERED: chlorproMAZINE 25 MG in 0.9 % Sodium Chloride 100 ML IVPB ONE (10:01)
[2022-01-16] MEDS: Metoclopramide 20 MG in 0.9 % Sodium Chloride 50 ML IVPB SCH ×2 (11:12→17:57)
[2022-01-16] MEDS ORDERED: *HR* Labetalol 20 MG/4 ML SYRINGE IVP ONE (12:02)
[2022-01-16 12:32] LABS: Basophils % 0.3 %; Eosinophils % 0.3 %; Hematocrit 41.6 % (37.5-50.1); Hemoglobin 14.2 g/dL (12.9-16.9); Immature Granulocytes % 0.5 % (0-4); Lymphocytes % 26.6 %; Mean Corpuscular HGB Conc 34.1 g/dL (31.6-35.5); Mean Corpuscular Hemoglobin 30.2 pg (28.0-33.3); Mean Corpuscular Volume 88.5 fL (83.0-100.0); Mean Platelet Volume 10.3 fL (9.4-12.4); Monocytes # 1.1 K/mcL (0.0-1.3); Monocytes % 13.8 %; Neutrophils # 4.5 K/mcL (1.6-8.9); Platelet Count 241 K/mcL (140-400); Red Cell Distribution Width 12.6 % (11.5-14.5); Segmented Neutrophils % 58.5 %; White Blood Count 7.6 K/mcL (4.3-11.1)
[2022-01-16 12:54] LABS: Magnesium 1.9 mg/dL (1.6-2.6); Phosphorous 2.7 mg/dL (2.7-4.5)
[2022-01-16 12:57] LABS: Alanine Aminotransferase 49 Units/L (7-52); Albumin 3.6 g/dL (3.5-5.7); Albumin/Globulin Ratio 1.3 (1.1-2.2); Alkaline Phosphatase 90 Units/L (34-104); Aspartate Amino Transferase 29 Units/L (13-39); BUN/Creatinine Ratio 35 (6-26); Bilirubin,Direct 0.1 mg/dL (0.0-0.2); Bilirubin,Indirect 0.4 mg/dL (0.0-1.0); Bilirubin,Total 0.5 mg/dL (0.3-1.0); Blood Urea Nitrogen 29 mg/dL (8-23); Calcium 8.5 mg/dL (8.6-10.3); Carbon Dioxide 25 mEq/L (23-29); Chloride 103 mEq/L (98-107); Globulin 2.7 g/dL (2.4-3.5); Glucose 98 mg/dL (70-105); Osmolality,Calculated 292 (280-300); Potassium 3.5 mEq/L (3.5-5.1); Sodium 138 mEq/L (136-145); Total Protein 6.3 g/dL (6.4-8.9); Troponin I 0.03 ng/mL (< 0.04); eGFR For African Americans > 60 (> 60); eGFR For Non-African Americans > 60 (> 60)
[2022-01-16] MEDS ORDERED: *HR* Heparin 5,000 UNIT/ML VIAL IVP PRN ×2 (13:00)
[2022-01-16] MEDS ORDERED: *HR* Heparin 5,000 UNIT/ML VIAL IVP ONE (13:00)
[2022-01-16 13:25] LABS: Prothrombin Time 11.3 Seconds (9.4-12.1)
[2022-01-16 13:26] LABS: Heparin anti-factor XA UFH < 0.04 IU/mL (0.30-0.70)
[2022-01-16 13:27] LABS: Activated Partial Thrombo Time 26.3 Seconds (26.0-36.0)
[2022-01-16] MEDS: Heparin 25,000UNIT/250ML 1/2NS 25,000 UNIT/250 ML IV.SOLN IVC SCH (14:10)
[2022-01-16] MEDS: Ondansetron 4 MG/2 ML VIAL IVP PRN ×2 (14:11→21:42)
[2022-01-16] MEDS ORDERED: Perflutren Lipid Microsphere 1.3 ML in 0.9 % Sodium Chloride 8.7 ML IVP PRN (14:27)
[2022-01-16] MEDS ORDERED: Albumin 25% 25gram/100mL 25 GM/100 ML IV.SOLN IVPB ONE (21:27)
[2022-01-17] MEDS: Acetaminophen 325 MG TABLET PO SCH ×4 (01:21→16:54)
[2022-01-17] MEDS: Metoclopramide 20 MG in 0.9 % Sodium Chloride 50 ML IVPB SCH ×2 (01:21→10:34)
[2022-01-17] MEDS: 0.9 % Sodium Chloride 1,000 ML IVC SCH ×3 (03:30→20:35)
[2022-01-17 03:37] LABS: Basophils % 0.4 %; Eosinophils # 0.1 K/mcL (0.0-0.6); Eosinophils % 1.1 %; Hematocrit 36.4 % (37.5-50.1); Immature Granulocytes % 0.4 % (0-4); Lymphocytes # 2.7 K/mcL (0.6-4.6); Lymphocytes % 27.5 %; Mean Corpuscular HGB Conc 34.1 g/dL (31.6-35.5); Mean Corpuscular Hemoglobin 30.4 pg (28.0-33.3); Mean Corpuscular Volume 89.2 fL (83.0-100.0); Mean Platelet Volume 10.7 fL (9.4-12.4); Monocytes # 1.3 K/mcL (0.0-1.3); Neutrophils # 5.6 K/mcL (1.6-8.9); Platelet Count 239 K/mcL (140-400); Red Blood Count 4.08 M/mcL (4.19-5.50); Red Cell Distribution Width 12.6 % (11.5-14.5); Segmented Neutrophils % 57.6 %; White Blood Count 9.8 K/mcL (4.3-11.1)
[2022-01-17 03:46] LABS: Hemoglobin 12.4 g/dL (12.9-16.9)
[2022-01-17 05:27] LABS: Alanine Aminotransferase 40 Units/L (7-52); Albumin 3.2 g/dL (3.5-5.7); Albumin/Globulin Ratio 1.4 (1.1-2.2); Alkaline Phosphatase 81 Units/L (34-104); Aspartate Amino Transferase 26 Units/L (13-39); BUN/Creatinine Ratio 30 (6-26); Bilirubin,Total 0.5 mg/dL (0.3-1.0); Blood Urea Nitrogen 24 mg/dL (8-23); Carbon Dioxide 23 mEq/L (23-29); Chloride 105 mEq/L (98-107); Globulin 2.3 g/dL (2.4-3.5); Glucose 94 mg/dL (70-105); Osmolality,Calculated 288 (280-300); Potassium 3.8 mEq/L (3.5-5.1); Sodium 137 mEq/L (136-145); Total Protein 5.5 g/dL (6.4-8.9); eGFR For African Americans > 60 (> 60); eGFR For Non-African Americans > 60 (> 60)
[2022-01-17] MEDS: lisinopriL 20 MG TABLET PO SCH (10:34)
[2022-01-17] MEDS: Heparin 25,000UNIT/250ML 1/2NS 25,000 UNIT/250 ML IV.SOLN IVC SCH (16:53)
[2022-01-18] MEDS: Acetaminophen 325 MG TABLET PO SCH ×5 (00:12→17:36)
[2022-01-18] MEDS: 0.9 % Sodium Chloride 1,000 ML IVC SCH ×3 (03:20→21:07)
[2022-01-18 05:49] LABS: BUN/Creatinine Ratio 24 (6-26); Blood Urea Nitrogen 20 mg/dL (8-23); Calcium 8.5 mg/dL (8.6-10.3); Carbon Dioxide 22 mEq/L (23-29); Chloride 107 mEq/L (98-107); Glucose 83 mg/dL (70-105); Magnesium 2.1 mg/dL (1.6-2.6); Osmolality,Calculated 286 (280-300); Phosphorous 2.7 mg/dL (2.7-4.5); Potassium 3.7 mEq/L (3.5-5.1); Sodium 137 mEq/L (136-145); eGFR For African Americans > 60 (> 60); eGFR For Non-African Americans > 60 (> 60)
[2022-01-18] MEDS ORDERED: Methylnaltrexone 12 MG/0.6 ML SYRINGE SQ ONE (08:41)
[2022-01-18] MEDS ORDERED: Isovue-370 500 ML BOTTLE IVP ONE (08:49)
[2022-01-18] MEDS ORDERED: Isovue-370 500 ML BOTTLE PO ONE (09:00)
[2022-01-18] MEDS: Pregabalin 75 MG CAPSULE PO SCH ×3 (09:43→21:05)
[2022-01-18] MEDS: lisinopriL 20 MG TABLET PO SCH (09:43)
[2022-01-18] MEDS: Aspirin 81 MG TAB.CHEW PO SCH (09:43)
[2022-01-18] MEDS: Baclofen 10 MG TABLET PO SCH ×3 (09:43→21:05)
[2022-01-19] MEDS: Acetaminophen 325 MG TABLET PO SCH ×3 (05:32→11:17)
[2022-01-19 07:55] VITALS: O2SAT 95
[2022-01-19] MEDS: Baclofen 10 MG TABLET PO SCH (08:45)
[2022-01-19] MEDS: lisinopriL 20 MG TABLET PO SCH (08:45)
[2022-01-19] MEDS: Ibuprofen 800 MG TABLET PO SCH (08:45)
[2022-01-19] MEDS: Finasteride 5 MG TABLET PO SCH (08:46)
[2022-01-19] MEDS: Pregabalin 75 MG CAPSULE PO SCH (08:46)
[2022-01-19] MEDS: polyethylene glycoL 3350 17 GM POWD.PACK PO SCH (08:46)
[2022-01-19] MEDS: Aspirin 81 MG TAB.CHEW PO SCH (08:46)
[2022-01-19] MEDS ORDERED: Albumin 25% 25gram/100mL 25 GM/100 ML IV.SOLN IVPB ONE (09:25)
[2022-01-19] MEDS ORDERED: Furosemide 40 MG/4 ML VIAL IVP ONE (09:25)
[2022-01-19 11:57] VITALS: BP 137/84; PULSE 59; TEMP 98.3
== END 2022-01-19 15:06 | disposition home or self-care (01) | DRG 330 ==
LOC: SAMDAY 11:41 → SUATTDRO 22:37 → 3ANU 22:37
PROVIDERS: ADMIT Surgery; ATTEND Student in an Organized Health Care Education/Training Program